=== PATIENT | male | born 1945 | race Caucasian/White ===

== ENCOUNTER 2017-09-16 06:55 | Inpatient (IN) | payer OTHER ==
[2017-09-16] MEDS: LACTATED RINGER'S 1,000 ML IV (06:00)
[2017-09-16] MEDS ORDERED: TRANEXAMIC ACID 1,000 MG in D5W 100 ML AT CLOSURE X1 IVPB (07:00)
[2017-09-16] MEDS ORDERED: TRANEXAMIC ACID 1,000 MG in D5W 100 ML AT INCISION X1 IVPB (07:00)
[2017-09-16] MEDS ORDERED: CEFAZOLIN 2 GM/50 ML (PMX) 50 ML (FOR WT < 120 KG) IVPB (07:00)
[2017-09-16] MEDS ORDERED: MIDAZOLAM 1 MG/ML 2 ML INJ (08:36)
[2017-09-16] MEDS ORDERED: ROPIVACAINE 0.5 % 30 ML VIAL (08:45)
[2017-09-16] MEDS: BACITRACIN 50000 UNITS INJ (10:08)
[2017-09-16] MEDS: POLYMYXIN B 500000 UNIT INJ (10:09)
[2017-09-16] MEDS ORDERED: ETOMIDATE 20 MG INJ (11:15)
[2017-09-16] MEDS ORDERED: CEFAZOLIN 1 GM INJ (11:15)
[2017-09-16] MEDS ORDERED: LIDOCAINE 100 MG SYRINGE (11:15)
[2017-09-16] MEDS ORDERED: ROCURONIUM 50 MG INJ (11:15)
[2017-09-16] MEDS ORDERED: ONDANSETRON 4 MG INJ (11:16)
[2017-09-16] MEDS ORDERED: NA PHOSPHATE/BIPHOS 133 ML ENEMA PR (11:30)
[2017-09-16] MEDS ORDERED: ZOLPIDEM 5 MG TAB PO (11:30)
[2017-09-16] MEDS ORDERED: BISACODYL 10 MG SUPP PR (11:30)
[2017-09-16] MEDS ORDERED: NALOXONE (0.4 MG/ML) INJ IV ×2 (11:30→12:00)
[2017-09-16] MEDS ORDERED: oxyCODONE 5 MG TAB PO (11:30)
[2017-09-16] MEDS ORDERED: MAGNESIUM HYDROXIDE 30ML CUP PO (11:30)
[2017-09-16] MEDS ORDERED: DIPHENHYDRAMINE 50 MG INJ IM (11:30)
[2017-09-16] MEDS: ONDANSETRON 4 MG INJ IV ×3 (12:00→23:30)
[2017-09-16] MEDS ORDERED: HYDROmorphONE (0.2 MG/ML) 10ML SYG IV (12:00)
[2017-09-16] MEDS ORDERED: hydrALAzine 20 MG INJ IV (12:00)
[2017-09-16] MEDS ORDERED: DIPHENHYDRAMINE 50 MG INJ IV (12:00)
[2017-09-16] MEDS ORDERED: ONDANSETRON 4 MG INJ IV (12:00)
[2017-09-16] MEDS ORDERED: LABETALOL HCL 20MG INJ IV (12:00)
[2017-09-16] MEDS: DOCUSATE SODIUM 100 MG CAP PO (12:03)
[2017-09-16] MEDS: CEFAZOLIN 1 GM/50 ML (PMX) 50 ML IVPB ×2 (12:04→19:41)
[2017-09-16] MEDS: ASPIRIN (EC) 325 MG TAB PO (12:04)
[2017-09-16] MEDS: HYDROmorphONE (0.2 MG/ML) 10ML SYG IV ×5 (12:22→14:27)
[2017-09-16] MEDS: KETOROLAC 15 MG INJ IV (13:28)
[2017-09-16] MEDS: MEPERIDINE 25 MG INJ IV (13:28)
[2017-09-16] MEDS: FENTAnyl 50 MCG/ML VIAL IV (14:25)
[2017-09-16] MEDS: oxyCODONE 5 MG TAB PO ×2 (14:51→19:41)
[2017-09-16] MEDS: SOD CHLORIDE 0.9% 1,000 ML IV ×2 (15:31→23:41)
[2017-09-16] MEDS: SALMETEROL/FLUTICASONE 250/50 INHA INH (21:36)
[2017-09-16] MEDS: CELECOXIB 100 MG CAP PO (21:36)
[2017-09-16] MEDS: RANITIDINE 150 MG TAB PO (21:36)
[2017-09-16] MEDS: TAMSULOSIN (SR) 0.4 MG CAP PO (21:36)
[2017-09-17] MEDS: oxyCODONE 5 MG TAB PO ×4 (01:29→17:00)
[2017-09-17] MEDS: KETOROLAC 15 MG INJ IV ×2 (02:39→19:58)
[2017-09-17] MEDS: SENNA/DOCUSATE NA (8.6MG/50MG) TAB PO ×2 (02:39→19:57)
[2017-09-17] MEDS: CEFAZOLIN 1 GM/50 ML (PMX) 50 ML IVPB (02:39)
[2017-09-17] MEDS: ONDANSETRON 4 MG INJ IV (04:29)
[2017-09-17] MEDS: BETHANECHOL 25 MG TAB PO (06:18)
[2017-09-17] MEDS: PANTOPRAZOLE (EC) 40 MG TAB PO (06:19)
[2017-09-17] MEDS ORDERED: NON-FORMULARY/PATIENT OWN MED (Omeprazole* 40 MG) PO (09:00)
[2017-09-17] MEDS: PYRIDOXINE 50 MG TAB PO (09:37)
[2017-09-17] MEDS: DOCUSATE SODIUM 100 MG CAP PO ×2 (09:37→19:57)
[2017-09-17] MEDS: FERROUS FUMARATE (SR) TAB PO ×2 (09:37→19:57)
[2017-09-17] MEDS: RANITIDINE 150 MG TAB PO ×2 (09:37→19:57)
[2017-09-17] MEDS: CELECOXIB 100 MG CAP PO ×2 (09:37→19:57)
[2017-09-17] MEDS: ASPIRIN (EC) 325 MG TAB PO (09:38)
[2017-09-17] MEDS: NIFEdipine (XL) 30 MG TAB PO (09:39)
[2017-09-17] MEDS: LISINOPRIL 20 MG TAB PO (09:39)
[2017-09-17] MEDS: HYDROCHLOROTHIAZIDE 25 MG TAB PO (09:40)
[2017-09-17] MEDS: SALMETEROL/FLUTICASONE 250/50 INHA INH ×2 (09:40→19:56)
[2017-09-17 11:00] LABS: ADD MAN DIFF? NO
[2017-09-17 11:05] LABS: BASOPHILS % 0.4 % (0.0-2.0); EOSINOPHILS # 0.1 10^3/ul (0.0-0.5); EOSINOPHILS % 1.6 % (0.0-7.0); HEMATOCRIT 41.6 % (42.0-52.0); HEMOGLOBIN 14.1 g/dl (14.0-18.0); LYMPHOCYTES # 0.8 10^3/ul (0.8-2.9); LYMPHOCYTES % 9.7 % (15.0-51.0); MEAN CORPUSCULAR HEMOGLOBIN 32.9 pg (29.0-33.0); MEAN CORPUSCULAR HGB CONC 33.9 g/dl (32.0-37.0); MEAN CORPUSCULAR VOLUME 97.2 fl (82.0-101.0); MEAN PLATELET VOLUME 8.7 fl (7.4-10.4); MONOCYTE # 0.8 10^3/ul (0.3-0.9); MONOCYTES % 9.8 % (0.0-11.0); NEUTROPHIL # 6.7 10^3/ul (1.6-7.5); NEUTROPHILS % 78.3 % (39.0-77.0); PLATELET COUNT 205 10^3/UL (140-415); RED BLOOD COUNT 4.28 10^6/ul (4.70-6.10); RED CELL DISTRIBUTION WIDTH 12.9 % (11.5-14.5)
[2017-09-17 11:05] LABS: WHITE BLOOD COUNT 8.6 10^3/ul (4.8-10.8)
[2017-09-17 11:23] LABS: ANION GAP 8 (8-16); BLOOD UREA NITROGEN 12 mg/dl (7-20); CALCIUM 8.6 mg/dl (8.4-10.2); CARBON DIOXIDE 29 mmol/L (21-31); CHLORIDE 99 mmol/L (97-110); CREATININE 0.84 mg/dl (0.61-1.24); GLUCOSE 113 mg/dl (70-220); POTASSIUM 4.3 mmol/L (3.5-5.1); SODIUM 132 mmol/L (135-144)
[2017-09-17] MEDS: SOD CHLORIDE 0.9% 1,000 ML IV (12:11)
[2017-09-17] MEDS: TAMSULOSIN (SR) 0.4 MG CAP PO (19:57)
[2017-09-18] MEDS: oxyCODONE 5 MG TAB PO ×3 (01:05→09:04)
[2017-09-18 05:12] LABS: ADD MAN DIFF? NO
[2017-09-18 05:18] LABS: BASOPHILS % 0.3 % (0.0-2.0); EOSINOPHILS # 0.2 10^3/ul (0.0-0.5); EOSINOPHILS % 2.3 % (0.0-7.0); HEMOGLOBIN 14.3 g/dl (14.0-18.0); LYMPHOCYTES # 1.5 10^3/ul (0.8-2.9); LYMPHOCYTES % 15.2 % (15.0-51.0); MEAN CORPUSCULAR HEMOGLOBIN 33.3 pg (29.0-33.0); MEAN CORPUSCULAR HGB CONC 34.9 g/dl (32.0-37.0); MEAN CORPUSCULAR VOLUME 95.6 fl (82.0-101.0); MEAN PLATELET VOLUME 8.6 fl (7.4-10.4); MONOCYTE # 1.2 10^3/ul (0.3-0.9); MONOCYTES % 12.5 % (0.0-11.0); NEUTROPHIL # 6.7 10^3/ul (1.6-7.5); NEUTROPHILS % 69.4 % (39.0-77.0); PLATELET COUNT 202 10^3/UL (140-415); RED BLOOD COUNT 4.29 10^6/ul (4.70-6.10); RED CELL DISTRIBUTION WIDTH 13.1 % (11.5-14.5)
[2017-09-18 05:18] LABS: WHITE BLOOD COUNT 9.7 10^3/ul (4.8-10.8)
[2017-09-18] MEDS: SENNA/DOCUSATE NA (8.6MG/50MG) TAB PO (05:47)
[2017-09-18 05:59] LABS: MAGNESIUM 2.1 mg/dl (1.7-2.5)
[2017-09-18 06:02] LABS: ANION GAP 12 (8-16); BLOOD UREA NITROGEN 12 mg/dl (7-20); CALCIUM 8.8 mg/dl (8.4-10.2); CARBON DIOXIDE 32 mmol/L (21-31); CHLORIDE 99 mmol/L (97-110); CREATININE 0.87 mg/dl (0.61-1.24); GLUCOSE 105 mg/dl (70-220); POTASSIUM 3.8 mmol/L (3.5-5.1); SODIUM 139 mmol/L (135-144)
[2017-09-18] MEDS: PYRIDOXINE 50 MG TAB PO (09:03)
[2017-09-18] MEDS: ASPIRIN (EC) 325 MG TAB PO (09:04)
[2017-09-18] MEDS: DOCUSATE SODIUM 100 MG CAP PO (09:04)
[2017-09-18] MEDS: RANITIDINE 150 MG TAB PO (09:04)
[2017-09-18] MEDS: CELECOXIB 100 MG CAP PO (09:04)
[2017-09-18] MEDS: FERROUS FUMARATE (SR) TAB PO (09:04)
[2017-09-18] MEDS: HYDROCHLOROTHIAZIDE 25 MG TAB PO (09:05)
[2017-09-18] MEDS: NIFEdipine (XL) 30 MG TAB PO (09:06)
[2017-09-18] MEDS: LISINOPRIL 20 MG TAB PO (09:06)
[2017-09-18] MEDS: SALMETEROL/FLUTICASONE 250/50 INHA INH (09:07)
[2017-09-20] MEDS ORDERED: FLUCONAZOLE 150 MG TAB PO (09:00)
[2017-09-20] MEDS ORDERED: DOCUSATE SODIUM 100 MG CAP PO (09:00)
== END 2017-09-18 14:00 | disposition home health service (06) | DRG 470 ==
LOC: REC 06:55 → MS1 14:59
PROC: 0SRC0J9 Replacement of Right Knee Joint with Synthetic Substitute, Cemented, Open Approach (ICD-10-PCS; principal; 2017-09-16 08:30)
DX: M17.11 Unilateral primary osteoarthritis, right knee (principal); E66.01 Morbid (severe) obesity due to excess calories; J44.9 Chronic obstructive pulmonary disease, unspecified; I10 Essential (primary) hypertension; G47.33 Obstructive sleep apnea (adult) (pediatric); Z68.36 Body mass index [BMI] 36.0-36.9, adult; E78.5 Hyperlipidemia, unspecified; N40.0 Benign prostatic hyperplasia without lower urinary tract symptoms; Z85.820 Personal history of malignant melanoma of skin; Z87.891 Personal history of nicotine dependence
CPT/HCPCS: 71045; 73560; 80048; 83735; 85025; 86850; 86900; 86901; 87081; 87086; 88304; 88311; 97110; 97116; 97163; 97166; 97530